=== PATIENT | female | born 1980 | race African-American/Black ===

== ENCOUNTER 2023-06-22 14:03 | Emergency (ER) | payer OTHER ==
[2023-06-22] MEDS ORDERED: ALBUTEROL 2.5 MG/3 ML NEB SOL ONE (15:02)
[2023-06-22] MEDS ORDERED: IPRATROPIUM BROM 0.5MG/2.5ML ONE (15:02)
[2023-06-22 15:32] LABS: SARS-CoV-2 Antigen Rapid Res Negative (Negative)
--- NOTE | 2023-06-22 15:37 | RAD REPORT ---
[facility] 3:13 pm CLINICAL HISTORY: Cough;Dyspnea COMPARISON: No comparisons TECHNIQUE: Portable AP view of the chest. FINDINGS: The lungs are clear. No pneumothorax or effusion. The cardiomediastinal contours are unre markable. IMPRESSION: No acute cardiopulmonary process.
[2023-06-22] MEDS ORDERED: NA CHLORIDE 0.9% 1,000 ML ONE (16:20)
[2023-06-22] MEDS ORDERED: KETOROLAC 30 MG/ML INJ ONE (16:20)
[2023-06-22] MEDS ORDERED: ONDANSETRON 4 MG/2 ML VIAL ONE (16:20)
[2023-06-22 16:21] LABS: Hematocrit 35.3 % (36.0-45.0); Lymphocytes % 10.6 % (15.3-44.8); MCV 85.2 fL (80-100); MPV 6.4 fL (7.6-11.3); Platelets 401 thou/uL (152-406); RBC Red Blood Cell Count 4.14 M/uL (3.86-4.86)
[2023-06-22 16:36] LABS: Albumin 3.7 g/dL (3.4-5.0); Bilirubin Total 0.4 mg/dL (0.2-1.0); Potassium 3.2 mEq/L (3.5-5.1)
--- NOTE | 2023-06-22 16:40 | EDPHYS ---
Physician Documentation [facility] Name: Joel Rooney Age: 43 yrs Sex: Female : 1980 Arrival Date: 06/22/2023 Time: 14:03 Bed 15 Private MD: ED Physician Mitchell Rodriguez HPI: 06/22 14:30 This 43 yrs old Black Female presents to ER via Ambulatory with complaints of cough, jh7 runny nose, back pain, N/V. 14:30 43-year-old female presents with back pain, chills, coughing, runny nose, and nausea jh7 vomiting since this morning. She denies any medical problems. She has not taken any medication to alleviate her symptoms.. Historical: - Allergies: 14:30 No Known Allergies; cm10 - Home Meds: 14:30 None [Active]; cm10 - PMHx: 14:30 None; cm10 - PSHx: 14:30 None; cm10 - Immunization history:: Adult Immunizations unknown. - Social history:: Smoking status: Patient denies any tobacco usage or history of. ROS: 14:30 Eyes: Negative for injury, pain, redness, and discharge, Neck: Negative for injury, jh7 pain, and swelling, Abdomen/GI: Negative for abdominal pain, nausea, vomiting, diarrhea, and constipation, Back: Negative for injury and pain, MS/Extremity: Negative for injury and deformity, Skin: Negative for injury, rash, and discoloration, Neuro: Negative for headache, weakness, numbness, tingling, and seizure, 14:30 Constitutional: Positive for body aches, chills, 14:30 ENT: Positive for nasal discharge, 14:30 Respiratory: Positive for cough, Negative for wheezing, 14:30 Abdomen/GI: Positive for nausea and vomiting, Negative for abdominal pain, diarrhea, constipation, 14:30 All other systems are negative, Exam: 14:30 Constitutional: This is a well developed, well nourished patient who is awake, alert, jh7 and in no acute distress. Head/Face: Normocephalic, atraumatic. Cardiovascular: Regular rate and rhythm with a normal S1 and S2. No gallops, murmurs, or rubs. Normal PMI, no JVD. No pulse deficits. Respiratory: Lungs have equal breath sounds bilaterally, clear to auscultation and percussion. No rales, rhonchi or wheezes noted. No increased work of breathing, no retractions or nasal flaring. Back: No spinal tenderness. No costovertebral tenderness. Full range of motion. Skin: Warm, dry with normal turgor. Normal color with no rashes, no lesions, and no evidence of cellulitis. MS/ Extremity: Pulses equal, no cyanosis. Neurovascular intact. Full, normal range of motion. Neuro: Awake and alert, GCS 15, oriented to person, place, time, and situation. Normal gait. 14:30 ENT: Nose: nasal drainage, and is seen coming from both nares, that is clear, Posterior pharynx: pooling of secretions, that are mild, 14:30 Respiratory: the patient does not display signs of respiratory distress, Respirations: normal, Breath sounds: are clear throughout, Respiratory rate: 20 Persistent, hacking cough, 14:30 Neuro: Orientation: to person, place, time \T\ situation. [facility] Vital Signs: 14:29 BP 138 / 81; Pulse 98; Resp 16; Temp 98.5(TE); Pulse Ox 99% on R/A; Weight 63.5 kg; cm10 Height 5 ft. 6 in. ; Pain 10/10; 15:11 BP 143 / 94; Pulse 99; Resp 18 S; Pulse Ox 100% on R/A; kc6 16:17 BP 134 / 91; Pulse 106; Resp 16 S; Temp 98.3(O); Pulse Ox 100% on R/A; kc6 14:29 Body Mass Index 22.60 (63.50 kg, 167.64 cm) cm10 14:29 Pain Scale: Adult cm10 MDM: 14:23 Patient medically screened. [facility] 16:40 Differential diagnosis: Viral gastroenteritis, bronchitis, upper respiratory infection, [facility] influenza, COVID. Data reviewed: vital signs, nurses notes, lab test result(s), radiologic studies, plain films. I considered the following discharge prescriptions or medication management in the emergency department Medications were administered in the Emergency Department. See MAR. Counseling: I had a detailed discussion with the patient and/or guardian regarding the historical points, exam findings, and any diagnostic results supporting the discharge/admit diagnosis, to return to the emergency department if symptoms worsen or persist or if there are any questions or concerns that arise at home. Response to treatment: the patient's symptoms have markedly improved after treatment. 06/22 14:41 Order name: Flu; Complete Time: 15:48 [facility] 06/22 14:41 Order name: SARS RAPID; Complete Time: 15:41 [facility] 06/22 15:52 Order name: CBC with Diff; Complete Time: 16:38 [facility] 06/22 15:52 Order name: CMP; Complete Time: 16:38 [facility] 06/22 15:52 Order name: Lipase; Complete Time: 16:38 [facility] 06/22 14:41 Order name: XRAY Chest (1 view); Complete Time: 15:41 [facility] Administered Medications: 15:01 Drug: DuoNeb Nebulize (2.5 mg - 0.5 mg) 3 ml Nebulizer once Route: Nebulizer; kc6 16:12 Follow up: Response: No adverse reaction kc6 16:12 Drug: NS 0.9% IV 1000 ml IV at 1 bolus Per protocol; 1000 mL bolus Route: IV; Rate: 1 kc6 bolus; Site: right antecubital; 16:55 Follow up: Response: No adverse reaction; IV Status: Completed infusion; IV Intake: kc6 1000ml 16:12 Drug: Ondansetron IVP 4 mg IVP once; over 2 minutes Route: IVP; Site: right antecubital;kc6 16:39 Follow up: Response: No adverse reaction; Nausea is decreased; Vomiting decreased kc6 16:12 Drug: Ketorolac IVP 30 mg IVP once Route: IVP; Site: right antecubital; kc6 16:39 Follow up: Response: No adverse reaction; Pain is decreased kc6 Disposition: 06/23 09:06 Co-signature as Attending Physician, Mitchell Rodriguez MD I reviewed the patient's care rn provided by the Advanced Practice Provider and agree with the diagnosis and treatment plan. Disposition Summary: 06/22/23 16:40 Discharge Ordered Notes: Location: Home [facility] Problem: [facility] Symptoms: have improved jh Condition: Stable 7 Diagnosis - Acute upper respiratory infection, unspecified jh7 - Nausea with vomiting, unspecified jh7 Followup: [facility] - With: Private Physician - When: 2 - 3 days - Reason: Recheck today's complaints Discharge Instructions: - Discharge Summary Sheet jl7 - Upper Respiratory Infection, Adult jh7 - Viral Respiratory Infection [facility] Forms: - Work release form hb - SBAR form jl7 - Medication Reconciliation Form 7 - Thank You Letter [facility] - Patient Portal Instructions [facility] - Leadership Thank You Letter [facility] Prescriptions: - albuterol sulfate 90 mcg/actuation Inhalation HFA Aerosol Inhaler - inhale 1 puff INHALATION route every 4 to 6 hours As needed; 1 Each; Refills: [facility] 0, Product Selection Permitted - Tessalon Perles 100 mg Oral Capsule - take 1 capsule ORAL route every 8 hours As needed; 15 capsule; Refills: 0, jh7 Product Selection Permitted Signatures: Dispatcher [employer] Mitchell Henderson MD MD rn Sveta Nam, [employer] [facility] Lexi Riggins RN RN kc6 Alyssa Boogie RN RN cm10 Corrections: (The following items were deleted from the chart) 06/22 14:31 14:30 PSHx: Unable to Obtain; cm10 cm10
--- NOTE | 2023-06-22 16:40 | ER ---
Nurse's Notes [facility] Name: Joel Rooney Age: 43 yrs Sex: Female : 1980 Arrival Date: 06/22/2023 Time: 14:03 Bed 15 Private MD: Diagnosis: Acute upper respiratory infection, unspecified;Nausea with vomiting, unspecified Presentation: 06/22 14:29 Chief complaint: Patient states: right back pain and chills onset this morning. Pt cm10 states that she has also been congested. No urinary symptoms. Coronavirus screen: Vaccine status: Patient reports receiving the 2nd dose of the covid vaccine. Client denies travel out of the [place] in the last 14 days. Ebola Screen: Patient denies travel to an Ebola-affected area in the 21 days before illness onset. No symptoms or risks identified at this time. Initial Sepsis Screen: Does the patient meet any 2 criteria? No. Patient's initial sepsis screen is negative. Does the patient have a suspected source of infection? No. Patient's initial sepsis screen is negative. Risk Assessment: Do you want to hurt yourself or someone else? Patient reports no desire to harm self or others. Onset of symptoms was June 22, 2023. 14:29 Method Of Arrival: Ambulatory cm10 14:29 Acuity: LYNNETTE 3 cm10 Historical: - Allergies: 14:30 No Known Allergies; cm10 - Home Meds: 14:30 None [Active]; cm10 - PMHx: 14:30 None; cm10 - PSHx: 14:30 None; cm10 - Immunization history:: Adult Immunizations unknown. - Social history:: Smoking status: Patient denies any tobacco usage or history of. Screenin:10 [facility] ED Fall Risk Assessment (Adult) History of falling in the last 3 months, kc6 including since admission No falls in past 3 months (0 pts) Confusion or Disorientation No (0 pts) Intoxicated or Sedated No (0 pts) Impaired Gait No (0 pts) Mobility Assist Device Used No (0 pt) Altered Elimination No (0 pt) Score/Fall Risk Level 0 - 2 = Low Risk. Abuse screen: Denies threats or abuse. Denies injuries from another. Nutritional screening: No deficits noted. Tuberculosis screening: No symptoms or risk factors identified. Assessment: 15:10 General: Appears in no apparent distress. comfortable, Behavior is calm, cooperative, kc6 appropriate for age, Reports chills for. Pain: Complains of pain in right low back. Neuro: Level of Consciousness is awake, alert, obeys commands, Oriented to person, place, time, situation, Appropriate for age. Cardiovascular: Capillary refill < 3 seconds. Respiratory: Airway is patent Trachea midline Respiratory effort is even, unlabored, Respiratory pattern is regular, symmetrical. GI: No signs and/or symptoms were reported involving the gastrointestinal system. : No signs and/or symptoms were reported regarding the genitourinary system. EENT: Reports nasal congestion. Derm: No signs and/or symptoms reported regarding the dermatologic system. Skin is intact, is healthy with good turgor, Skin is pink, warm \T\ dry. Musculoskeletal: No signs and/or symptoms reported regarding the musculoskeletal system. Circulation, motion, and sensation intact. Capillary refill < 3 seconds, Range of motion: intact in all extremities. 16:10 Reassessment: Patient appears in no apparent distress at this time. No changes from kc6 previously documented assessment. Patient and/or family updated on plan of care and expected duration. Pain level reassessed. Patient is alert, oriented x 3, equal unlabored respirations, skin warm/dry/pink. Vital Signs: 14:29 BP 138 / 81; Pulse 98; Resp 16; Temp 98.5(TE); Pulse Ox 99% on R/A; Weight 63.5 kg; cm10 Height 5 ft. 6 in. ; Pain 10/10; 15:11 BP 143 / 94; Pulse 99; Resp 18 S; Pulse Ox 100% on R/A; kc6 16:17 BP 134 / 91; Pulse 106; Resp 16 S; Temp 98.3(O); Pulse Ox 100% on R/A; kc6 14:29 Body Mass Index 22.60 (63.50 kg, 167.64 cm) cm10 14:29 Pain Scale: Adult cm10 ED Course: 14:07 Patient arrived in ED. mr 14:23 [facility] Nam FNP [facility] 14:23 Mitchell Rodriguez MD is Attending Physician. 7 14:30 Triage completed. cm10 14:31 Arm band placed on Patient placed in an exam room, on a stretcher. cm10 14:42 Lexi Riggins, RN is Primary Nurse. kc6 15:10 Patient has correct armband on for positive identification. Bed in low position. Call kc6 light in reach. Side rails up X 1. Adult w/ patient. Client placed on continuous cardiac and pulse oximetry monitoring. NIBP monitoring applied. 15:10 Patient maintains SpO2 saturation greater than 95% on room air. kc6 15:15 XRAY Chest (1 view) In Process Unspecified. EDMS 16:04 Missed attempt(s): 22 gauge in left antecubital area. Bleeding controlled, band aid db applied, catheter tip intact. 16:08 Inserted saline lock: 20 gauge in right antecubital area, using aseptic technique. db Blood collected. 16:55 No provider procedures requiring assistance completed. IV discontinued, intact, kc6 bleeding controlled, No redness/swelling at site. Pressure dressing applied. Administered Medications: 15:01 Drug: DuoNeb Nebulize (2.5 mg - 0.5 mg) 3 ml Nebulizer once Route: Nebulizer; kc6 16:12 Follow up: Response: No adverse reaction kc6 16:12 Drug: NS 0.9% IV 1000 ml IV at 1 bolus Per protocol; 1000 mL bolus Route: IV; Rate: 1 kc6 bolus; Site: right antecubital; 16:55 Follow up: Response: No adverse reaction; IV Status: Completed infusion; IV Intake: kc6 1000ml 16:12 Drug: Ondansetron IVP 4 mg IVP once; over 2 minutes Route: IVP; Site: right antecubital;kc6 16:39 Follow up: Response: No adverse reaction; Nausea is decreased; Vomiting decreased kc6 16:12 Drug: Ketorolac IVP 30 mg IVP once Route: IVP; Site: right antecubital; kc6 16:39 Follow up: Response: No adverse reaction; Pain is decreased kc6 Medication: 16:56 VIS not applicable for this client. kc6 Intake: 16:55 IV: 1000ml; Total: 1000ml. kc6 Outcome: 16:40 Discharge ordered by . luis alberto 16:55 Discharged to home ambulatory, with family, kc6 16:55 Condition: improved 16:55 Discharge instructions given to patient, Instructed on discharge instructions, follow up and referral plans. medication usage, Demonstrated understanding of instructions, follow-up care, medications, Prescriptions given X 2, 16:56 Patient left the ED. kc6 Signatures: Dispatcher [employer] EDMS Emma Mckeon, Reg Reg mr VivSveta, L[employer]OGRAPHIC PRESS FEEDER LITHOGRAPHIC [employer]ESS FEEDER Lexi Arzola RN RN kc6 Haley Bacon RN RN db Alyssa Boogie RN RN cm10 Corrections: (The following items were deleted from the chart) 14:31 14:30 PSHx: Unable to Obtain; cm10 cm10 16:23 16:17 BP 134 / 91; Pulse 106bpm; Resp 16bpm; Spontaneous; Pulse Ox 100% RA; kc6 kc6
[2023-06-22 17:13] VITALS: O2SAT 100
[2023-06-22 17:23] VITALS: BP 134/91; TEMP 98.3
== END 2023-06-22 16:56 | disposition home or self-care (01) ==
LOC: ER 14:03
DX: J06.9 Acute upper respiratory infection, unspecified (principal); R11.2 Nausea with vomiting, unspecified; Z11.52 Encounter for screening for COVID-19
CPT/HCPCS: 96361; 85025; 36415; 83690; 80053; 87804 ×2; 71045; 94640; 96375; 96374; 99285; 87811; J7613; J7644; J2405; J7030